=== PATIENT | male | born 1960 | race Caucasian/White ===

== ENCOUNTER 2023-12-04 07:37 | Day surgery (SDC) | payer BC ==
[~2023-12-04] VITALS: Ht 167.6 cm; Wt 170.1 kg
[2023-12-04 11:15] VITALS: O2SAT 97
[2023-12-04] MEDS: MEPERIDINE 100 MG INJ. 100 MG/ML VIAL ONE (11:21)
[2023-12-04] MEDS: MIDAZOLAM HCL 5 MG/5 ML VIAL ONE (11:21)
[2023-12-04 20:03] VITALS: BP_SYST 114; PULSE 68; RESP 14
== END 2023-12-04 12:50 | disposition home or self-care (01) ==
LOC: SDS 07:37
PROVIDERS: ATTEND Internal Medicine
DX: Z12.11 Encounter for screening for malignant neoplasm of colon (principal); K64.8 Other hemorrhoids; K57.30 Diverticulosis of large intestine without perforation or abscess without bleeding; I10 Essential (primary) hypertension; E78.5 Hyperlipidemia, unspecified; M19.90 Unspecified osteoarthritis, unspecified site; Z79.899 Other long term (current) drug therapy
CPT/HCPCS: 45378; 99152; 82948; 99153; G0378; J2250; J2175